=== PATIENT | male | born 1990 | race Hispanic/Latino ===

== ENCOUNTER 2018-11-25 03:34 | Day surgery (SDC) | payer OTHER, SELFPAY ==
[2018-11-25 03:54] LABS: Bilirubin Negative (Negative); Blood, Urine Negative (Negative); Clarity CLEAR (Clear); Glucose, Urine (Dipstick) Negative (Negative); Leukocyte Negative (Negative); Nitrite Negative (Negative); Protein, Urine (Dipstick) Negative (Neg-Trace); Specific Gravity, Urine 1.026 (1.002-1.036)
[2018-11-25 03:59] LABS: #Basophils 0.1 thou/uL (0.0-0.2); #Eosinphils 0.1 thou/uL (0.0-0.7); #Lymphocytes 2.8 thou/uL (1.20-3.40); #Monocytes 0.7 thou/uL (0.11-0.59); #Neutrophils 6.1 thou/uL (1.40-6.50); %Basophils 0.6 % (0.0-1.0); %Eosinophils 1.4 % (0.0-10.0); %Lymphocytes 28.9 % (21.0-51.0); %Monocytes 6.9 % (0.0-10.0); %Neutrophils 62.2 % (42.0-75.0); Hemoglobin 15.7 g/dL (14.0-18.0); Mean Corpuscular HGB CONC 33.4 g/dL (32.0-36.0); Mean Corpuscular Hemoglobin 31.5 pg (27.0-31.0); Mean Corpuscular Volume 94.4 fL (78.0-98.0); Mean Platelet Volume 8.3 fL (7.4-10.4); Platelet Count 184 thou/uL (130-400); RBC Distribution Width 11.6 % (11.5-14.5); Red Blood Cell (RBC) Count 4.99 mill/uL (4.70-6.10); White Blood Cell (WBC) Count 9.8 thou/uL (4.8-10.8)
[2018-11-25] MEDS ORDERED: Mag-Al 1200 mg/1200 mg/30 ML UDCUP ONE (04:15)
[2018-11-25] MEDS ORDERED: Ondansetron PF 4 MG/2 ML Vial ONE ×3 (04:15→13:49)
[2018-11-25] MEDS ORDERED: Lidocaine Viscous Sol 2% 15 ml UD Cup ONE (04:15)
[2018-11-25 04:21] LABS: ALT (SGPT) 17 U/L (8-55); AST (SGOT) 18 U/L (5-34); Albumin 4.1 g/dL (3.5-5.0); Alkaline Phosphatase 109 U/L (40-150); Anion Gap 10 mmol/L (10-20); BUN (Urea Nitrogen) 12 mg/dL (8.9-20.6); Bilirubin, Total 0.8 mg/dL (0.2-1.2); Calc. Creatinine Clearance 0 mL/min (70-130); Calcium 9.2 mg/dL (7.8-10.44); Carbon Dioxide 23 mmol/L (22-29); Chloride 108 mmol/L (98-107); Estimated GFR-MDRD Greater than 90; Globulin 2.7 g/dL (2.4-3.5); Glucose 103 mg/dL (70-105); Lipase 28 U/L (8-78); Potassium 3.4 mmol/L (3.5-5.1); Protein, Total 6.8 g/dL (6.0-8.3); Sodium 138 mmol/L (136-145)
[2018-11-25] MEDS ORDERED: Morphine 4 MG/ML VIAL ONE (06:05)
[2018-11-25] MEDS ORDERED: Piperacillin/Tazobactam 4.5 GM VIAL ONE (07:42)
--- NOTE | 2018-11-25 07:52 | CT ---
CT OF THE ABDOMEN AND PELVIS WITH IV CONTRAST: Date: 11/25/18 INDICATION: Nausea and abdominal pain. FINDINGS: There is a large retrocecal appendix measuring 9.0 mm, with mucosal enhancement and mild periappendic eal fat stranding. No drainable fluid collection is evident. There is mild intrahepatic biliary ductal dilatation. Slight prominence of the main pancreatic duct. The gallbladder appears within normal limits. Pancreas, adrenal glands, and kidneys are normal appearing. Small right hepatic lobe cyst is stable t o comparison dated 08/07/10. No pathologically enlarged lymph nodes are evident. The bladder, rectum, and perirectal soft tissues appear within normal limits. No acute osseous abnormality is evident. IMPRESSION: 1. Findings of acute appendicitis. 2. Mild intrahepatic biliary prominence may be related to mild biliary stasis. 3. Stable small right hepatic lobe cyst. Findings called to Dr. Angeles at 0706 hours on 04/24/19. CODE CR. POS: BH
--- NOTE | 2018-11-25 08:24 | HP ---
HISTORY OF PRESENT ILLNESS: Mr. Chua 28-year-old otherwise healthy young man, who presented to emergency department with insidious onset periumbilical abdominal pain, which started close to midnight. Pain intensified this morning and has settled in the right lower quadrant. The pain is associated with some nausea, but no emesis. Maximum intensity pain is rated at 10/10. He has never experienced pain like this in the past. PAST MEDICAL HISTORY: Pertinent for gastroesophageal reflux disease, for which he takes [id number] regimen. PAST SURGICAL HISTORY: He has had no previous surgeries. SOCIAL HISTORY: He is single, lives independently. 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 He denies any cigarette smoking, ethanol, or illicit drug abuse. FAMILY HISTORY: Notable for diabetes mellitus in his mother and maternal grandmother with essential hypertension. Mother and aunt both have breast carcinoma. There is no family history of heart disease or inflammatory bowel disease. PREHOSPITALIZATION MEDICATIONS: None. ALLERGIES: THE PATIENT DENIES ANY KNOWN DRUG ALLERGIES. REVIEW OF SYSTEMS: Ten-point review of systems essentially unremarkable, except as stated in past medical history and chief complaint. PHYSICAL EXAMINATION: GENERAL: This reveals a 28-year-old normally-developed man, who is otherwise coherent and interactive and appears stated age. The patient is alert and oriented x3. He appears to be in no acute distress at the time of my evaluation. VITAL SIGNS: Include blood pressure 108/57, pulse is 74, respiratory rate is 18, and oxygen saturation 100% on room air. HEENT: Reveals normocephalic and atraumatic. Pupils are equal, round, and reactive to light and accommodation. HEART: Reveals regular rate and rhythm. No murmurs or gallops auscultated. LUNGS: Clear to auscultation bilaterally. Breathing, regular and unlabored. ABDOMEN: Soft and nondistended. He has right lower quadrant tenderness at McBurney's. He has a positive Rovsing's sign. Liver and spleen otherwise nonpalpable below costal margin. NEUROLOGIC: Reveals no focal deficits present. LABORATORY FINDINGS: Today include a CBC with 9800 white blood cells, hemoglobin and hematocrit 15.7 and 47.1 respectively, and platelet count 184,000. Metabolic profile; sodium 138, potassium 3.4, chloride is 108, bicarb is 23, BUN 12, creatinine 0.78, and glucose 103. AST and ALT are normal at 18 and 17 respectively. Lipase is normal at 28. I have personally reviewed the CT scan of the abdomen and pelvis from this morning. This is significant for a dilated appendix at 9 mm in diameter with periappendiceal fat stranding. No pneumoperitoneum or significant free fluid is noted. IMPRESSION: Acute appendicitis. RECOMMENDATIONS: Laparoscopic appendectomy. The above findings and recommendations have been discussed with the patient in the presence of his nurse. I have advised him of the risks and benefits of the proposed surgery to include, but not limited to bleeding, infection, injury to bowel or surrounding structures. The patient indicates understanding of information provided today. I have answered his questions. He has granted consent for this admission and surgical intervention. Job ID: [id number]
[2018-11-25] MEDS ORDERED: Fentanyl 100 MCG/2 ML VIAL ONE ×2 (09:33→12:23)
[2018-11-25] MEDS ORDERED: Iopamidol 370 76% 100 ML VIAL ONE (10:07)
[2018-11-25] MEDS ORDERED: Iopamidol 370 76% 50 ML VIAL FS ONE (10:07)
[2018-11-25] MEDS ORDERED: Bupivacaine/Epinephrine 0.25% 30 ML VIAL ONE (10:42)
[2018-11-25] MEDS ORDERED: ePHEDrine 50 MG/ML VIAL ONE (13:49)
[2018-11-25] MEDS ORDERED: Glycopyrrolate 0.2 MG/ML 5 ML SYRINGE ONE (13:49)
[2018-11-25] MEDS ORDERED: PROPOFOL 200 MG/20 ML VIAL ONE (13:49)
[2018-11-25] MEDS ORDERED: Succinylcholine Chloride 20 MG/ML 10 ml SYRINGE FS ONE (13:49)
[2018-11-25] MEDS ORDERED: Rocuronium Bromide 10 MG/ML (10ML VIAL) ONE (13:49)
[2018-11-25] MEDS ORDERED: Lidocaine 1% PF 5 ML VIAL ONE (13:49)
--- NOTE | 2018-11-25 18:03 | OP ---
DATE OF PROCEDURE: 11/25/2018 PREOPERATIVE DIAGNOSIS: Acute appendicitis. POSTOPERATIVE DIAGNOSIS: Acute appendicitis. OPERATION PERFORMED: Laparoscopic appendectomy. ANESTHESIA: General endotracheal. ESTIMATED BLOOD LOSS: 5 mL. FLUIDS GIVEN: 700 mL crystalloids. COUNTS: Sponge and instrument counts were verified as correct x2. COMPLICATIONS: None apparent at the time of operation. INDICATIONS FOR OPERATION: This is a 28-year-old man, who presented with insidious onset of abdominal pain. Clinical radiographic examination was consistent with acute appendicitis, for which the patient was brought to the operating room for appendectomy. The findings are consistent with dilated suppurative, elongated retrocecal appendix. No evidence of perforation. DESCRIPTION OF PROCEDURE: Informed consent obtained from the patient, who was brought to the operating room and placed in supine position. Following general anesthesia, abdomen was sterilely prepped and draped in usual fashion. The skin below the umbilicus was infiltrated with 0.25% Marcaine with epinephrine. A small curvilinear infraumbilical incision was made using 11 scalpel. Umbilical stalk grasped with Juliane and elevated. Veress needle was inserted through the incision and placed in the peritoneal cavity through which the abdomen was insufflated with 2.5 L of CO2 gas. Intraabdominal pressure was noted at 2 mmHg. Following abdominal insufflation, the Veress needle was removed and a 5 mm trocar introduced using a Visiport under laparoscopy. Laparoscopy confirmed proper placement of the port. No injuries to underlying structures. Additional laparoscopy reveals the right lower quadrant partially encased by omental adhesions Under direct laparoscopy, a 5 mm suprapubic and another 5 mm left lower quadrant ports were placed after the overlying skin were infiltrated with 0.25% Marcaine with epinephrine and appropriate incision was made. The patient was placed in a Trendelenburg position, rotated to his left. I introduced Prestige grasper through the left lower quadrant port site using this to take down omental adhesions to expose retrocecal appendix which is quite suppurative. I then used an Endo-Edelmira forceps from the suprapubic port site, grasping the appendix, which was elevated. Using the LigaSure device, the mesoappendix was sterilely divided down to the base with good hemostasis. The appendix was then divided at the appendiceal-cecal junction between endo-loops. The appendix was delivered of the abdominal cavity using the EndoCatch. Operative site was inspected for good hemostasis. Finding no other pathology, laparoscopy was terminated. Fascia of the left lower quadrant port was closed using 0 Vicryl suture and Endo Close device on the laparoscopy. The abdomen was desufflated. All ports and instruments removed and accounted for. Skin incision was closed using 4-0 Monocryl suture in subcuticular fashion. Dermabond was applied over incisional closure. Job ID: [id number]
== END 2018-11-25 13:26 | disposition home or self-care (01) ==
LOC: ERS 03:34 → SDC 09:12 → ERS 09:12 → SDC 13:26
PROVIDERS: ATTEND Surgery
PROC: 0DTJ4ZZ Resection of Appendix, Percutaneous Endoscopic Approach (ICD-10-PCS; principal; 2018-11-25)
DX: K35.80 Unspecified acute appendicitis (principal); K21.9 Gastro-esophageal reflux disease without esophagitis; K76.89 Other specified diseases of liver; Z79.899 Other long term (current) drug therapy
CPT/HCPCS: 36415; 74177; 80053; 81003; 83690; 85025; 88304; 96365; 96375; 96376; J2001; J2270; J2405; J2543; J2704; J3010; J3490; Q9967

== ENCOUNTER 2018-11-26 08:38 | Emergency (ER) | payer SELFPAY ==
[2018-11-26 10:03] LABS: Bilirubin Negative (Negative); Blood, Urine Negative (Negative); Clarity CLEAR (Clear); Glucose, Urine (Dipstick) Negative (Negative); Leukocyte Negative (Negative); Nitrite Negative (Negative); Protein, Urine (Dipstick) Negative (Neg-Trace); Urobilinogen 0.2 mg/dL (0.2-1.0)
== END 2018-11-26 10:42 | disposition home or self-care (01) ==
LOC: ERS 08:38
DX: R33.9 Retention of urine, unspecified (principal); K21.9 Gastro-esophageal reflux disease without esophagitis
CPT/HCPCS: 51702; 81003

== ENCOUNTER 2018-11-28 04:43 | Emergency (ER) | payer SELFPAY ==
[2018-11-28 05:59] LABS: Bilirubin Negative (Negative); Blood, Urine Small (Negative); Clarity CLEAR (Clear); Glucose, Urine (Dipstick) Negative (Negative); Leukocyte Negative (Negative); Nitrite Negative (Negative); Protein, Urine (Dipstick) Negative (Neg-Trace)
[2018-11-28 06:02] LABS: Bacteria/HPF None Seen HPF (None Seen); Hyaline Casts/LPF 0-3 HYALINE CAST LPF (0-3 Hyaline); Pathc Cast-AUWi Flag 0.72 (0-2.49); RBC/HPF 0-3 HPF (0-3); Squamous Epithelial None Seen HPF (0-3); WBC/HPF 0-3 HPF (0-3)
--- NOTE | 2018-11-28 07:56 | ULT ---
SCROTAL ULTRASOUND: Date: 11/28/18 INDICATION: History of scrotal pain after appendectomy 3 days ago. FINDINGS: Saldana scale, color Doppler, and spectral Doppler images were obtained of the testicles. The right testicle measures 4.9 x 2.7 x 3.0 cm. The left testicle measures 4.5 x 2.6 x 3.0 cm. There is normal flow to both testicles. No intratesticular mass is evident. Tiny epididymal cyst is seen wi thin both epididymides. There are small bilateral hydroceles. IMPRESSION: 1. No intratesticular mass or torsion demonstrated. 2. Small nonspecific bilateral hydroceles. 3. Small bilateral epididymal head cysts. POS: BH
== END 2018-11-28 07:18 | disposition home or self-care (01) ==
LOC: ERS 04:43
DX: N50.811 Right testicular pain (principal)
CPT/HCPCS: 76870; 81003; 81015; 93976